=== PATIENT | male | born 1975 | race Caucasian/White ===

== ENCOUNTER → 2025-08-21 | Emergency (ER) | payer BC, MEDICAID ==
[~2025-08-21] VITALS: Ht 170.2 cm; Wt 74.8 kg
[~2025-08-21] MED LIST: NAPR-1164 PO
[2025-08-21 14:15] VITALS: BP 134/71; TEMP 98.2
[2025-08-21 14:38] VITALS: O2SAT 98
== END | disposition home or self-care (01) ==
LOC: ER 14:32
DX: M72.2 Plantar fascial fibromatosis (principal); M19.90 Unspecified osteoarthritis, unspecified site